=== PATIENT | female | born 1975 | race Two or more races ===

== ENCOUNTER → 2020-06-06 | Outpatient (CLI) | payer OTHER ==
--- NOTE | 2020-06-06 15:03 | RADIOLOGY REPORT (SQ) ---
EXAM DESCRIPTION: VENOUS UNILATERAL LOWER IMAGES COMPLETED DATE/TIME: 06/06/2020 2:54 pm REASON FOR STUDY: LLE PAIN SWELLING R60.1 GENERALIZED EDEMA M79.672 PAIN IN LEFT FOOT COMPARISON: None. TECHNIQUE: Dynamic and static traore scale and color images acquired of the left leg venous system. Se lected spectral images acquired with additional compression and augmentation maneuvers. The contralat eral common femoral vein and saphenofemoral junction were also imaged. Images stored on PACS. LIMITATIONS: None. FINDINGS: COMMON FEMORAL: Normal phasicity, compression and augmentation. No visualized echogenic ma terial on traore scale. No defects on color images. FEMORAL: Normal compression and augmentation. No visualized echogenic material on traore scale. No defe cts on color images. POPLITEAL: Normal compression, augmentation. No visualized echogenic material on traore scale. No defec ts on color images. CALF VESSELS: Normal compression, augmentation. No visualized echogenic material on traore scale. No de fects on color images. GSV and SSV: Normal compression, augmentation. No visualized echogenic material on traore scale. No def ects on color images. ANY DEEP VENOUS INSUFFICIENCY: Not evaluated. ANY EVIDENCE OF POPLITEAL CYST: No. OTHER: No other significant finding. CONTRALATERAL COMMON FEMORAL VEIN AND SAPHENOFEMORAL JUNCTION: Normal phasicity, compression and augmentation. No visualized echogenic material on traore scale. No de fects on color images. IMPRESSION: NO EVIDENCE DVT OR SVT IN THE LEFT LEG. TECHNICAL DOCUMENTATION: JOB ID: [id number] [employer]- All Rights Reserved Reading location - IP/workstation name: [email or web address]
== END ==
LOC: SP 13:38
PROVIDERS: ATTEND Podiatrist Foot Surgery
DX: R60.0 Localized edema (principal); M79.672 Pain in left foot
CPT/HCPCS: 93971